=== PATIENT | male | born 1955 | race Caucasian/White ===

== ENCOUNTER 2021-04-18 15:19 | Emergency (ER) | payer MEDICARE, SELFPAY ==
[2021-04-18 16:00] VITALS: BP 193/104; PULSE 91; RESP 15; TEMP 36.7; O2SAT 95; BMI 35.2
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
--- NOTE | 2021-04-18 16:17 | ED_ITS ---
HPI - Wound/Laceration General: Chief Complaint: Wound/Laceration Stated Complaint: RUE LAC Time Seen by Provider: 04/18/21 16:09 History of Present Illness: HPI narrative: 65-year-old male presents emergency room with complaint of laceration on his right hand. He was unhooking a trailer and a piece of machinery snapped back at him caught him in the palm of his hand. He is able to flex and extend the fingers without difficulty Onset (ago): minute(s) Place: work Patient tetanus UTD: No Context: accidental Associated symptoms: Reports no associated symptoms; Denies chills, fever(s), nausea or vomiting Review of Systems Const: Denies: fever(s), chills, body aches, change in appetite, fatigue or malaise Card: Denies: chest pain, edema, dyspnea on exertion or orthopnea Resp: Denies: dyspnea, productive cough or non-productive cough GI: Denies: abdominal pain, nausea, vomiting, hematemesis, coffee ground emesis, diarrhea, constipation, bloating, hematochezia or melena Physical Exam Const: COMMON NORMALS: no acute distress GENERAL APPEARANCE: cooperative and comfortable ORIENTATION/CONSCIOUSNESS: Yes awake, Yes oriented to person, Yes oriented to place and Yes oriented to time Neck/C-Spine: COMMON NORMALS: no JVD Resp: COMMON NORMALS: normal respiratory effort, No retractions, No use of accessory muscles and clear to auscultation bilaterally AUSCULTATION: clear to auscultation bilaterally Cardio: COMMON NORMALS: no JVD, regular rate, regular rhythm and No murmurs present (Cardio) RATE: regular rate RHYTHM: regular rhythm GI: COMMON NORMALS: Soft to palpation and No hepatosplenomegaly present AUSCULTATION: Yes normoactive bowel sounds PALPATION: Yes Soft to palpation, No Tenderness to palpation present (GI), No Guarding due to palpation present (GI) and Yes No hepatosplenomegaly present Extremity: NARRATIVE EXTREMITY EXAM: 4 cm laceration on palm of the hand is full-thickness through the skin patient is able to flex and extend against resistance with no difficulty. Patient has normal sensation in the distal tips of the fingers involved. Neuro: SENSORIUM/ORIENTATION: Yes oriented to person, Yes oriented to place and Yes oriented to time Procedures Laceration Laceration 1: Site: hand Side (If applicable): right Size (cm): 8 Description: flap and irregular Depth: simple, single layer Local Anesthetic: lidocaine 1% Amount of anesthesia used (mL): 6 Pre-repair: wound explored, irrigated extensively and deep structures intact Skin layer closed with: nylon Size (cm): 4-0 Number of sutures: 8 Technique: simple, interrupted Course Vital Signs: Vital signs: Vital Signs Temperature 98.1 F 04/18/21 16:00 Pulse Rate 91 04/18/21 16:00 Respiratory Rate 15 04/18/21 16:00 Blood Pressure 193/104 04/18/21 16:00 Pulse Oximetry 95 04/18/21 16:00 MDM - Wound/Laceration MDM Narrative: Medical decision making narrative: Wound closed no difficulty wound care instructions given. Discharge Plan Discharge Patient Disposition: Home Clinical Impression: Laceration Condition: Stable Prescriptions: New Augmentin 875-125 mg tablet 1 tab PO BID Qty: 14 RF: 0 hydrocodone-acetaminophen 5-325 mg tablet 1 tab PO Q6H PRN (Reason: pain) Qty: 10 RF: 0 Discharge Orders: Discharge ED (Routine); Ordered 04/18/21 Ordered By: Rambo Krause Referrals: Tg Fontaine MD [Primary Care Provider] - Discharge Diet: Usual diet Discharge Activity: Increase activity as tolerated Patient Instructions: Laceration (ED), Opioid Safety Coding Level of Care Code ED Blood Bank Business Manager for Chg Fwd Exam Detailed
[2021-04-18] MEDS: tetanus-dipt-pertussis 0.5 mL SDV IM (17:33)
[2021-04-18] MEDS: lidocaine 1% INJ 20 mL INJECTION (17:43)
== END 2021-04-18 17:39 | disposition home or self-care (01) ==
PROVIDERS: Emergency Provider Family Medicine; PCP Internal Medicine
DX: S61.411A Laceration without foreign body of right hand, initial encounter (principal); W22.8XXA Striking against or struck by other objects, initial encounter; Z23 Encounter for immunization
CPT/HCPCS: 12004; 73130; 90471; 90715; 99282

== ENCOUNTER 2021-12-17 14:25 | Emergency (ER) | payer MEDICARE, SELFPAY ==
[2021-12-17 14:36] VITALS: PULSE 87; RESP 18; TEMP 36.9; O2SAT 96; BMI 38.3
--- NOTE | 2021-12-17 14:53 | ED_ITS ---
HPI - Wound/Laceration General: Chief Complaint: Wound/Laceration Stated Complaint: Head injury Time Seen by Provider: 12/17/21 14:41 History of Present Illness: Patient said he is working in a house and a drill fell through the ceiling striking him in the right cheek eyebrow area. Patient had bleeding for a while but that has stopped. Patient's tetanus up-to-date. Patient denies any loss of consciousness. Patient denies any cheekbone pain. Does not have any vision changes. Associated symptoms: Denies chills, fever(s), nausea or vomiting Review of Systems Const: Denies: fever(s), chills or body aches Eyes: Denies: eye discomfort ENMT: Denies: throat pain Card: Denies: chest pain Resp: Denies: dyspnea GI: Denies: abdominal pain, nausea or vomiting Skin/Breast: Reports: other (Laceration to left cheek left eyebrow with bruising); Denies: rash Neuro: Denies: headache(s) Psych: Denies: depression or suicidal ideation Physical Exam Const: COMMON NORMALS: no acute distress, patient oriented x3 and alert HENMT: COMMON NORMALS: normocephalic and external ears normal HEAD & SCALP: normocephalic EXTERNAL EAR: Yes external ears normal Eye: COMMON NORMALS: EOMs intact bilaterally GENERAL EYE: appearance normal, both eyes and all related structures ALIGNMENT: Yes alignment normal OTHER: Bruising to left lower eyelid area, no tenderness to cheekbone area Neck/C-Spine: COMMON NORMALS: no JVD Resp: COMMON NORMALS: normal respiratory effort and No use of accessory muscles Cardio: COMMON NORMALS: no JVD GI: INSPECTION: Yes normal to inspection Extremity: COMMON NORMALS: normal to inspection and full ROM Neuro: COMMON NORMALS: patient oriented x3 SENSORIUM/ORIENTATION: Yes alert OTHER: Patient alert oriented x3 Psych: COMMON NORMALS: mental status grossly normal Skin: COMMON NORMALS: no rashes or lesions noted GENERAL SKIN EXAM: no rashes or lesions noted OTHER: Patient has irregular laceration left cheek and a small avulsion/ lacs cuts to the left eyebrow. Procedures Laceration Laceration 1: Site: face Side (If applicable): left Size (cm): 3 Description: stellate, irregular and clean Skin layer closed with: other (Skin adhesive) Course Vital Signs: Vital signs: Vital Signs Temperature 98.4 F 12/17/21 14:36 Pulse Rate 87 12/17/21 14:36 Respiratory Rate 18 12/17/21 14:36 Pulse Oximetry 96 12/17/21 14:36 MDM - Wound/Laceration Medical Decision Making Patient has 3 small lacerations to the left eyebrow area about 3 to 4 mm in length and no particular pattern probably represents where these jaw maday of the drill struck his eyebrow he has no tenderness to the bone underneath. And has a flap irregular laceration with a stellate end closest to his nose that I was able to close with skin adhesive as well the ones on his eyebrow with the same tube of adhesive without difficulty. Wounds were well clean before gluing. Discharge Plan Discharge Patient Disposition: Home Clinical Impression: Face lacerations Condition: Stable Prescriptions: No Action Augmentin 875-125 mg tablet 1 tab PO BID Qty: 14 0RF hydrocodone-acetaminophen 5-325 mg tablet 1 tab PO Q6H PRN (Reason: pain) Qty: 10 0RF Discharge Orders: Discharge ED (Routine); Ordered 12/17/21 Ordered By: Rd Zarate Referrals: Tg Fontaine MD [Primary Care Provider] - Discharge Diet: Usual diet Discharge Activity: Resume usual activity Patient Instructions: Skin Adhesive Care (ED) Activity Restrictions/Additional Instructions: Apply ice to area to help keep swelling down. Follow-up your primary care return here if there is any signs or symptoms of infection occurring. Or if there is any visual changes. Or if pain gets worse in the cheek area. Coding Level of Care Code ED Director Of Training for Mariah Fwgin Exam Comprehensive
== END 2021-12-17 15:27 | disposition home or self-care (01) ==
PROVIDERS: Emergency Provider Nurse Practitioner Family; PCP Internal Medicine
DX: S01.112A Laceration without foreign body of left eyelid and periocular area, initial encounter (principal); W20.8XXA Other cause of strike by thrown, projected or falling object, initial encounter
CPT/HCPCS: 12013; 99282

== ENCOUNTER 2022-12-29 08:28 | Emergency (ER) | payer MEDICARE, OTHER, SELFPAY ==
[2022-12-29 08:38] VITALS: BP 151/89; PULSE 81; RESP 17; O2SAT 97
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
[2022-12-29 09:55] VITALS: BP 158/108; PULSE 77; RESP 16; O2SAT 96
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
[2022-12-29 11:00] VITALS: BP 175/100; PULSE 72; RESP 16; O2SAT 94
--- NOTE | 2022-12-29 12:04 | PC.NURSE ---
PHYSICAL THERAPY REPLACED C COLLAR WITH SEEMA J COLLAR
[2022-12-29 12:05] VITALS: BP 149/91; PULSE 74; RESP 16; O2SAT 95
--- NOTE | 2022-12-29 13:13 | DCPLANNER ---
Addendum entered by Venecia Trammell 01/12/23 07:55: Patient had a follow up appointment scheduled with ortho - patient did attend appointment. Addendum entered by Venecia Trammell 12/30/22 11:22: Patient has a follow up appointment scheduled for , January 07, 2023 at 2:30 with Duncan Ramon at ortho. Original Note: manager of business had message to schedule a follow up appointment for patient with ortho. manager of business sent patients information to the front office staff at ortho. Patients information will be printed and reviewed. Clinic will call patient with appointment information.
== END 2022-12-29 12:07 | disposition home or self-care (01) ==
PROVIDERS: Emergency Provider Physician Assistant; PCP Internal Medicine
DX: S12.601A Unspecified nondisplaced fracture of seventh cervical vertebra, initial encounter for closed fracture (principal); Z79.82 Long term (current) use of aspirin; Z79.84 Long term (current) use of oral hypoglycemic drugs; V59.9XXA Occupant (driver) (passenger) of pick-up truck or van injured in unspecified traffic accident, initial encounter
CPT/HCPCS: 72125; 72128; 73030; 97760; 99284; L0172

== ENCOUNTER 2023-01-02 10:33 | Emergency (ER) | payer MEDICARE, OTHER, SELFPAY ==
[2023-01-02 10:53] VITALS: TEMP 36.7; BMI 37.6
[2023-01-02 10:56] VITALS: BP 148/98; PULSE 91; RESP 14; O2SAT 95
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
== END 2023-01-02 12:35 | disposition home or self-care (01) ==
PROVIDERS: Emergency Provider Physician Assistant; PCP Internal Medicine
DX: S12.601A Unspecified nondisplaced fracture of seventh cervical vertebra, initial encounter for closed fracture (principal); M54.12 Radiculopathy, cervical region; M54.50 Low back pain, unspecified; Z79.82 Long term (current) use of aspirin; Z79.84 Long term (current) use of oral hypoglycemic drugs; V89.2XXA Person injured in unspecified motor-vehicle accident, traffic, initial encounter
CPT/HCPCS: 72100; 99283

== ENCOUNTER → 2023-01-07 14:10 | Outpatient (BNVA) | payer MEDICARE, OTHER, SELFPAY | PROVIDERS: PCP Internal Medicine; Referring Provider Physician Assistant; Visit Provider Physician Assistant | DX: S12.600A Unspecified displaced fracture of seventh cervical vertebra, initial encounter for closed fracture (principal); V40.0XXA Car driver injured in collision with pedestrian or animal in nontraffic accident, initial encounter | CPT/HCPCS: 72040; 99203 ==

== ENCOUNTER 2023-01-27 07:27 | Outpatient (CLI) | payer MEDICARE, OTHER, SELFPAY ==
--- NOTE | 2023-01-27 08:00 | MR_ITS ---
WS: [id number] MRI CERVICAL SPINE NONCONTRAST HISTORY: Fracture LEFT C7 facet. COMPARISON: Cervical spine CT 12/29/2022. Technique: Multiplanar, multisequence noncontrast imaging of the cervical spine. Very slight straightening of the normal cervical lordosis. Disc spaces are mildly desiccated. Hypertr ophic endplate osteophytes. Signal within the cervical cord is normal. Visualized posterior fossa is unremarkable. Craniocervical junction, C1 and C2 relationship, odontoid process and soft tissues are normal. C2-C3: Normal. C3-C4: Mild annular disc bulging with facet disease. Mild foraminal narrowing. Small central disc pro trusion. C4-C5: Mild annular disc bulging and osteophytic ridging with facet arthritis. Small central disc pro trusion. Mild central and moderate foraminal stenosis. C5-C6: Diffuse annular disc bulging and osteophytic ridging with moderate facet arthritis. Combinatio n of factors resulting in severe central and bilateral foraminal stenosis. Larger osteophyte extendin g into the RIGHT foramen. C6-C7: Diffuse annular disc bulging with osteophytic ridging and facet joint arthritis. Moderate to s evere central and severe bilateral foraminal stenosis. C7-T1: Annular disc bulging and facet joint arthritis. Osteophytic ridging. Mild central and bilatera l foraminal stenosis. There is a moderate amount of edema surrounding the C6-7 facet joint in the soft tissues. Edema exten ds along the interspinous ligament at C6-7 and C7-T1. This is the site of the fracture described by Damon Kruse. Seen only on the axial imaging is edema within the left-sided facets. MR/MR cervical spin wo con* [id number] IMPRESSION: 1. Posttraumatic edema surrounding the LEFT C6-7 facet joints. Additional claudia a which is posttraumatic involving the interspinous ligaments at C6-7 and to a lesser extent C7-T1. 2. Multilevel areas of central and foraminal stenosis as above. 3. Severe central, bilateral foraminal stenosis at C5-6 and moderate to severe at C6-7. 4. Mild central and moderate foraminal stenosis at C4-5. 5. No signal abnormality within the cord.
== END 2023-01-27 07:28 | disposition home or self-care (01) ==
PROVIDERS: PCP Internal Medicine; Visit Provider Physician Assistant
DX: S12.600A Unspecified displaced fracture of seventh cervical vertebra, initial encounter for closed fracture (principal); X58.XXXA Exposure to other specified factors, initial encounter; M48.02 Spinal stenosis, cervical region
CPT/HCPCS: 72141

== ENCOUNTER → 2023-02-04 07:46 | Outpatient (BNVA) | payer MEDICARE, OTHER, SELFPAY | PROVIDERS: PCP Internal Medicine; Visit Provider Physician Assistant | DX: S12.600A Unspecified displaced fracture of seventh cervical vertebra, initial encounter for closed fracture (principal); M48.02 Spinal stenosis, cervical region; V89.2XXA Person injured in unspecified motor-vehicle accident, traffic, initial encounter | CPT/HCPCS: 99213 ==

== ENCOUNTER 2023-02-26 08:21 | Outpatient (CLI) | payer MEDICARE, OTHER, SELFPAY ==
[2023-02-26 09:06] VITALS: BMI 34.2
--- NOTE | 2023-02-26 09:08 | NMCV_ITS ---
NM calvin perf SPECT r/s* [id number] Eliezer Norris Age: 67 Gender: M : 1955 Exam Date: 02/26/2023 09:59 Ordering Phys: Tg Fontaine MD Technologist: ILIANA Arguelles Exam Location: [facility] Indications: CHEST PAIN STRESS TEST Please see separate stress test report in [facility] for full findings IMAGE PROTOCOL Rest/Stress 1 Lexiscan Day Radiopharmaceutical Dose (mCi) Administration Site Administered by Rest: Tc-99m 10.9 IV Yared Lu, NET DEVELOPMENT MANAGER Sestamibi Stress:Tc-99m 32.8 IV Yared Lu, NET DEVELOPMENT MANAGER Sestamibi Rest: 26-Feb-2023 60 Discovery 630 Stress: 26-Feb-2023 30 Discovery 630 0.4mg Lexiscan. Images obtained in supine and prone position. SPECT RESULTS Technical Quality: Excellent Raw Data Analysis: Normal Image Corrections: No attenuation or motion correction applied Summed Stress Score: 7 Summed Rest Score: 8 Summed Difference Score: 2 PERFUSION FINDINGS Small sized perfusion abnormality of moderate severity of mid to apical inferior, mid inferoseptal, apical septal wall on rest images with improved tracer uptake in apical septal wall on stress images. FUNCTIONAL RESULTS (calculated via Gated SPECT) Stress Image LV EF (%): 41 Stress EDV (mL):159 TID: 0.93 Stress ESV (mL):94 FUNCTIONAL FINDINGS: The left ventricle is normal in size. Transient Ischemia Dilatation of 0.93. The left ventricular ejection fraction is mildly reduced with a value of 41%. There is hypokinesis of mid to apical inferior crow. Increased end-diastolic and end-systolic volumes. IMPRESSIONS 1. Small sized perfusion abnormality of moderate severity of mid to apical inferior, mid inferoseptal, apical septal crow. This may represent old myocardial infarction in right coronary artery or attenuation artifact. 2. The left ventricular ejection fraction is mildly reduced with a value of 41%. 3. There is hypokinesis of mid to apical inferior wall. 4. No coronary ischemia based on the study. Kim Bishop MD (Electronically Signed) Final Date: 03 Mar 2023 12:08 S
--- NOTE | 2023-02-26 09:08 | ECG_ITS ---
[facility] Test Date: 2023-02-26 Pat Name: Eliezer Norris Department: Room: Gender: Male Online Education Manager: : 1955 Requested By: Tg Limon Order Number: [id number] Adair MD: Kim Bishop M.D. Interpretive Statements NAME OF STUDY: LEXISCAN SESTAMIBI STRESS TEST INDICATION: Chest Pain PROCEDURE: At the baseline, the blood pressure was 123/81 mmHg with a heart rate of 67 bpm. The electrocardiogram showed sinus rhythm with first-degree AV block. Left bundle branch block. The Lexiscan was infused over a period of 20 seconds. A total of 0.4 milligrams of Lexiscan was infused. The stress phase was continued for a total of 5 minutes. Heart rate at the end of the stress phase was 78 beats/min with a blood pressure 129/82 mm Hg. The EKG at the peak infusion revealed no significant changes. Sestamibi was injected 20 seconds after the Lexiscan infusion. Blood pressure at the end of the recovery phase was 130/80 mmHg with a heart rate of 79 beats per minute. CONCLUSION: 1. Non Diagnostic EKG with LexiScan infusion due to baseline left bundle branch block. 2. No LexiScan induced chest pain or cardiac arrhythmia. 3. Normal blood pressure and heart rate response. 4. Sestamibi/sestamibi perfusion scan pending; see separate report. Electronically Signed On 03-03-2023 10:37:07 CDT by Kim Bishop M.D. [id number]
[2023-02-26] MEDS: regadenoson 0.4 Mg/5 ml Syringe IVP (10:42)
[2023-02-26 10:56] VITALS: BP 130/80; PULSE 80
== END 2023-02-26 08:22 | disposition home or self-care (01) ==
LOC: CDL 08:22
PROVIDERS: PCP Internal Medicine; Visit Provider Internal Medicine
DX: I44.7 Left bundle-branch block, unspecified (principal); R07.9 Chest pain, unspecified
CPT/HCPCS: 36415; 78452; 93017; 96374; A9500; J2785

== ENCOUNTER → 2023-04-07 13:18 | Outpatient (BNVA) | payer MEDICARE, OTHER, SELFPAY | PROVIDERS: PCP Internal Medicine; Visit Provider Internal Medicine Cardiovascular Disease | DX: E78.5 Hyperlipidemia, unspecified (principal); E11.9 Type 2 diabetes mellitus without complications; Z79.84 Long term (current) use of oral hypoglycemic drugs; E66.9 Obesity, unspecified; Z68.34 Body mass index [BMI] 34.0-34.9, adult; Z87.891 Personal history of nicotine dependence | CPT/HCPCS: 99203 ==

== ENCOUNTER 2023-04-08 06:44 | Outpatient (CLI) | payer MEDICARE, OTHER, SELFPAY ==
--- NOTE | 2023-04-08 | USCV_ITS ---
Eliezer Norris Age: 67 Gender: M : 1955 Exam Date: 04/08/2023 07:13 Ordering Phys: Tg Fontaine MD Technologist: GEORGINA Exam Location: [facility] Indication: ABNORMAL STRESS TEST, LBBB BP: 134 / 80 HR: 72 Rhythm: Sinus Technical Quality: Suboptimal MEASUREMENTS (Male / Female) Normal Values 2D ECHO LVOT Diameter 2.0 cm LV Ejection Fraction MOD 2C 55.0 % LV Ejection Fraction 2C AL 55.2 % LA Diameter 3.7 cm LA Width 4.4 cm LA Height 5.1 cm RA Width 3.4 cm RA Height 4.3 cm Aorta at Sinotubular Diameter 2.8 cm IVC Diameter 1.7 cm M-MODE Aortic Annulus Diameter 2.8 cm LA Ao Ratio MM 1.3 MV E Point Septal Separation 0.4 cm DOPPLER AV Peak Velocity 151.0 cm/s LVOT Peak Velocity 126.0 cm/s AV Area Cont Eq vti 2.6 cm squared AV Area Cont Eq pk 2.6 cm squared MV Peak Velocity 95.0 cm/s MV Area PHT 3.9 cm squared Mitral E to A Ratio 0.7 MV E' Velocity 38.0 cm/s Mitral E to MV E' Ratio 9.1 Mitral E to LV E' Lateral Ratio 6.6 Mitral E to LV E' Septal Ratio 14.6 TR Peak Velocity 159.7 cm/s TR Peak Gradient 10.2 mmHg TR Mean Velocity 134.2 cm/s TR Mean Gradient 7.3 mmHg TR Velocity Time Integral 36.3 cm TV Peak E Velocity 73.0 cm/s Right Atrial Pressure 3.0 mmHg Pulmonary Artery Systolic Pressu 13.2 mmHg PV Peak Velocity 139.0 cm/s RV Acceleration Time 0.1 s RV Ejection Time 0.3 s RV AcT/ET 0.4 FINDINGS Left Ventricle The ventricle is not well seen. It is upper limit of normal in size. There is paradoxical septal motion consistent with the left bundle branch block. In the parasternal short axis view there appears to be hypokinesis of the anterior wall though this could be associated with the abnormal septal wall motion. There are no other obvious areas of hypokinesis. The overall ejection fraction is probably 45 to 50% taking into consideration the septal dyssynergy. Grade 1 diastolic dysfunction. Right Ventricle Normal right ventricular size and systolic function. Right Atrium The right atrium is normal in size. Left Atrium Mildly increased left atrial size. Mitral Valve Structurally normal mitral valve. Trace mitral valve regurgitation. Aortic Valve Structurally normal aortic valve without significant sclerosis or stenosis. There is no aortic regurgitation. Tricuspid Valve Structurally normal tricuspid valve without significant stenosis or regurgitation. Pulmonary artery systolic pressure is normal. Pulmonic Valve Pulmonic valve not well visualized. Pericardium Normal pericardium without effusion. Aorta Normal ascending aorta dimension. IVC Inferior vena cava not visualized. CONCLUSIONS The ventricle is not well seen. It is upper limit of normal in size. There is paradoxical septal motion consistent with the left bundle branch block. In the parasternal short axis view there appears to be hypokinesis of the anterior wall though this could be associated with the abnormal septal wall motion. There are no other obvious areas of hypokinesis. The overall ejection fraction is probably 45 to 50% taking into consideration the septal dyssynergy. Grade 1 diastolic dysfunction. Mildly increased left atrial size. Structurally normal mitral valve. Trace mitral valve regurgitation. There are no prior echocardiogram studies to compare. Dr. Carlos Varela MD (Electronically Signed) Final Date: 08 April 2023 08:44 S
== END 2023-04-08 06:45 | disposition home or self-care (01) ==
PROVIDERS: PCP Internal Medicine; Visit Provider Internal Medicine
DX: R94.39 Abnormal result of other cardiovascular function study (principal); I44.7 Left bundle-branch block, unspecified
CPT/HCPCS: 93306

== ENCOUNTER 2024-04-14 11:37 | Outpatient (CLI) | payer MEDICARE, OTHER, SELFPAY ==
--- NOTE | 2024-04-14 11:45 | XRR_ITS ---
PROCEDURE INFORMATION: Exam: XR Left Wrist Exam date and time: 04/14/2024 11:56 AM Age: 68 years old Clinical indication: Injury or trauma; Fall; Blunt trauma (contusions or hematomas); Left; Injury date: 04/13/24; Injury details: Fell on wrist yesterday, patient feels as though something pops in 3rd metacarpal; Additional info: Left wrist pain TECHNIQUE: Imaging protocol: Radiologic exam of the left wrist. Views: 3 or more views. COMPARISON: No relevant prior studies available. FINDINGS: Bones/joints: Normal. No fracture or dislocation. Soft tissues: Normal. XR/XR wrist LT min 3V* [id number] IMPRESSION: No acute findings.
== END 2024-04-14 11:38 | disposition home or self-care (01) ==
LOC: RAD 11:40
PROVIDERS: PCP Internal Medicine; Visit Provider Nurse Practitioner Family
DX: S69.92XA Unspecified injury of left wrist, hand and finger(s), initial encounter (principal); W19.XXXA Unspecified fall, initial encounter; M25.532 Pain in left wrist
CPT/HCPCS: 73110

== ENCOUNTER 2025-03-21 09:04 | Outpatient (CLI) | payer MEDICARE, OTHER, SELFPAY ==
--- NOTE | 2025-03-21 09:14 | XR_ITS ---
WS: [id number] Right hip, AP and frog-leg views, AP pelvis, 03/21/2025 Clinical Data: PAIN IN R HIP Comparison: None. Findings: No fractures or dislocations are seen. Right hip shows mild sclerosis of the acetabulum with loss of the spherical outline of the right femoral head. No narrowing or fragmentation of the right femoral head is seen. The left hip shows sclerosis of the acetabulum. The soft tissues are not remarkable. The adjacent pelvis is normal. XR/XR hip RT 2-3V wo/w pel* [id number] Impression: Osteoarthritis of both hips.
--- NOTE | 2025-03-21 09:14 | XR_ITS ---
WS: [id number] Lumbar spine, 7 views including both obliques, lateral views in flexion, extension and neutral position, 03/21/2025 Clinical Data: LOW BACK PAIN Comparison: Lumbar spine, 01/02/2023 Findings: No compression fractures or subluxation is seen. There is disc narrowing at L4- L5 and L5-S1. Large osteophytes are present L2-L5. The oblique images show no spondylolysis. The transverse processes and SI joints are normal. On flexion and extension there is no instability. XR/XR lumbar spine 6V w f/e [id number] Impression: 1. Osteoarthritis L2-L5 with disc narrowing at L4-L5 and L5-S1. 2. Negative for spondylolysis. 3. No instability on flexion or extension.
== END 2025-03-21 09:05 | disposition home or self-care (01) ==
LOC: RAD 09:11
PROVIDERS: PCP Internal Medicine; Visit Provider Nurse Practitioner Family
DX: M16.0 Bilateral primary osteoarthritis of hip (principal); M47.896 Other spondylosis, lumbar region; M51.369 Other intervertebral disc degeneration, lumbar region without mention of lumbar back pain or lower extremity pain; M51.379 Other intervertebral disc degeneration, lumbosacral region without mention of lumbar back pain or lower extremity pain; M25.78 Osteophyte, vertebrae
CPT/HCPCS: 72114; 73502

== ENCOUNTER → 2025-04-10 11:18 | Outpatient (BNVA) | payer MEDICARE, OTHER, SELFPAY | PROVIDERS: PCP Internal Medicine; Visit Provider Orthopaedic Surgery | DX: M25.551 Pain in right hip (principal); M62.89 Other specified disorders of muscle | CPT/HCPCS: 99204 ==

== ENCOUNTER → 2025-04-12 15:04 | Outpatient (BNVA) | payer MEDICARE, OTHER, SELFPAY | PROVIDERS: PCP Internal Medicine; Visit Provider Orthopaedic Surgery | DX: M54.9 Dorsalgia, unspecified (principal); M54.41 Lumbago with sciatica, right side | CPT/HCPCS: 72110; 99203 ==

== ENCOUNTER 2025-04-25 13:36 | Outpatient (CLI) | payer MEDICARE, OTHER, SELFPAY ==
--- NOTE | 2025-04-25 14:30 | MR_ITS ---
WS: [id number] MRI LUMBAR SPINE NONCONTRAST TECHNIQUE: Sagittal T1, T2 and STIR imaging. Axial T1 and T2 imaging. CLINICAL INFORMATION: low back pain FINDINGS: Mild lumbar curve. No acute compression. Incidental hemangioma T12. Severe central canal stenosis L3-4. Moderate to severe central canal stenosis L4-5 with impingement on the LEFT subarticular recess. L1-L2: Mild annular bulging. Slight narrowing of the LEFT subarticular recess. Moderate facet arthropathy. L2-L3: Moderate facet arthropathy. Slight narrowing of the LEFT subarticular recess. Mild LEFT foraminal narrowing. L3-L4: Broad-based central disc protrusion with severe central canal stenosis. Impingement of traversing L4 nerve roots bilaterally. Facet arthropathy and ligamentum flavum hypertrophy. Mild bilateral foraminal narrowing LEFT greater than RIGHT. L4-L5: LEFT subarticular protrusion impinges the subarticular recess and traversing LEFT L5 nerve root. Advanced LEFT facet arthropathy. Moderate LEFT foraminal narrowing. RIGHT foramen is patent. L5-S1: Shallow central protrusion. Moderate facet arthropathy. Disc osteophyte ridging with mild to moderate LEFT foraminal narrowing. Central protrusion slightly contacts the traversing S1 nerve roots. Visualized pelvic bony structures: Normal. Paravertebral soft tissues: Normal. Small bilateral renal cysts. LEFT adrenal nodule likely adenoma MR/MR lumbar spine wo con* [id number] IMPRESSION: 1. Severe central canal stenosis L3-4. 2. Moderate to severe central canal stenosis L4-5 with impingement on the LEF T subarticular recess. 3. Shallow central protrusion L5-S1 with slight contact of the S1 nerve roots. 4. Moderate facet arthropathy L3-L5. Severe LEFT L4-5 facet arthropathy
== END 2025-04-25 13:37 | disposition home or self-care (01) ==
PROVIDERS: PCP Internal Medicine; Visit Provider Orthopaedic Surgery
DX: M47.816 Spondylosis without myelopathy or radiculopathy, lumbar region (principal); M48.061 Spinal stenosis, lumbar region without neurogenic claudication; M51.27 Other intervertebral disc displacement, lumbosacral region
CPT/HCPCS: 72148

== ENCOUNTER → 2025-05-01 15:04 | Outpatient (BNVA) | payer MEDICARE, OTHER, SELFPAY | PROVIDERS: PCP Internal Medicine; Visit Provider Orthopaedic Surgery | DX: M48.062 Spinal stenosis, lumbar region with neurogenic claudication (principal) | CPT/HCPCS: 99213 ==